=== PATIENT | male | born 1960 | race Caucasian/White ===

== ENCOUNTER 2018-06-13 07:46 | Day surgery (SDC) | payer OTHER | END 2018-06-13 11:31 | disposition home or self-care (01) | LOC: GIL 07:46 | DX: Z12.11 Encounter for screening for malignant neoplasm of colon (principal); K29.30 Chronic superficial gastritis without bleeding; D12.2 Benign neoplasm of ascending colon; K20.8 Other esophagitis; I85.00 Esophageal varices without bleeding; K29.80 Duodenitis without bleeding; K57.90 Diverticulosis of intestine, part unspecified, without perforation or abscess without bleeding; K64.8 Other hemorrhoids; K64.4 Residual hemorrhoidal skin tags; E66.9 Obesity, unspecified; Z68.32 Body mass index [BMI] 32.0-32.9, adult; Z87.891 Personal history of nicotine dependence | CPT/HCPCS: 43239; 88305; 88312 ==